=== PATIENT | female | born 1990 | race Caucasian/White ===

== ENCOUNTER 2019-01-13 09:29 | Emergency (ER) | payer OTHER ==
[2019-01-13 09:41] VITALS: RESP 18; TEMP 98.5
--- NOTE | 2019-01-13 10:07 | ED ---
Female Urogenital HPI - General Chief complaint: Vaginal Bleeding Stated complaint: 6wks preg, bleeding Time Seen by Provider: 01/13/19 09:43 Source: patient, RN notes reviewed, old records reviewed Mode of arrival: ambulatory Limitations: no limitations - History of Present Illness Initial comments: Patient is a 28-year-old female who presents emergency Department today with complaints of vaginal bleeding for the past day. Patient reports that she r ecently found out she is . She blew she 6 weeks . Last menstrual period was November 29. She went to her primary care doctor yesterday and had a positive hCG test. Patient states that she is planning to follow-up with [facility] blew out her [facility] but has no [facility] doctor at this time. Patient states she has no significant pain but light cramping. - Related Data Home Medications Medication Instructions Recorded Confirmed Ljr-Jiza-Lyijx Acid 1 cap PO DAILY 01/13/19 01/13/19 [-U Capsule (formulary)] Allergies Allergy/AdvReac Type Severity Reaction Status Date / Time No Known Allergies Allergy Verified 01/13/19 09:50 Review of Systems ROS Statement: Those systems with pertinent positive or pertinent negative responses have been documented in the HPI. ROS Other: All systems not noted in ROS Statement are negative. Past Medical History Past Medical History: No Reported History History of Any Multi-Drug Resistant Organisms: None Reported Past Surgical History: Tonsillectomy Past Psychological History: No Psychological Hx Reported Smoking Status: Never smoker Past Alcohol Use History: None Reported Past Drug Use History: None Reported General Exam - General Exam Comments Initial Comments: Pleasant 28-year-old female. Alert and oriented 3. Patient appears in no significant distress. General: Well appearing, well nourished, in no distress. Oriented x 3, normal mood and affect . Ambulating without difficulty. Skin: Good turgor, no rash, unusual bruising or prominent lesions Hair: Normal texture and distribution. HEENT: Head: Normocephalic, atraumatic, no visible or palpable masses, depressions, or scaring. Eyes: Visual acuity intact, conjunctiva clear, sclera non-icteric, EOM intact, PERRL. Heart: No cardiomegaly or thrills; regular rate and rhythm, no murmur or gallop Lungs: Clear to auscultation and percussion Abdomen: Bowel sounds normal, no tenderness, organomegaly, masses, or hernia Back: Spine normal without deformity or tenderness, no CVA tenderness Extremities: No amputations or deformities, cyanosis, edema or varicosities, peripheral pulses intact Musculoskeletal: Normal gait and station. No misalignment, asymmetry, crepitation, defects, tenderness, masses, effusions, decreased range of motion, instability, atrophy or abnormal strength or tone in the head, neck, spine, ribs, pelvis or extremities. Neurologic: CN 2-12 normal. Sensation to pain, touch, and proprioception normal. DTRs normal in upper and lower extremities. No pathologic reflexes. Psychiatric: Oriented X3, intact recent and remote memory, judgment and insight, normal mood and affect. Pelvic: Vagina and cervix have evidence of blood clots of involved. Patient has no adnexal tenderness. Cervix appears to close. Limitations: no limitations Course Vital Signs 01/13/19 09:39 Temperature 98.5 F Pulse Rate 72 Respiratory 18 Rate Blood Pressure 128/83 O2 Sat by Pulse 99 Oximetry Medical Decision Making - Medical Decision Making 28-year-old female presents emergency Department today with complaints of vaginal bleeding. Patient is reportedly with 6 weeks . Has significant amount being on vaginal exam. Patient ultrasound shows no heart tones. A concern for blighted ovum. She is O+ blood type. She'll thousand. Discussed Patient follow-up with [facility] for repeat hCG O's. Can expect bleeding. For concerns for miscarriage. All questions answered. - Lab Data Result diagrams: 01/13/19 10:36 01/13/19 10:36 Lab Results 01/13/19 01/13/19 01/13/19 Range/Units 10:36 10:36 10:36 WBC 9.9 (3.8-10.6) k/uL RBC 4.74 (3.80-5.40) m/uL Hgb 13.4 (11.4-16.0) gm/dL Hct 41.7 (34.0-46.0) % MCV 87.9 (80.0-100.0) fL MCH 28.4 (25.0-35.0) pg MCHC 32.3 (31.0-37.0) g/dL RDW 14.0 (11.5-15.5) % Plt Count 314 (150-450) k/uL Neutrophils % 71 % Lymphocytes % 21 % Monocytes % 5 % Eosinophils % 1 % Basophils % 1 % Neutrophils # 7.0 (1.3-7.7) k/uL Lymphocytes # 2.1 (1.0-4.8) k/uL Monocytes # 0.5 (0-1.0) k/uL Eosinophils # 0.1 (0-0.7) k/uL Basophils # 0.1 (0-0.2) k/uL Sodium 137 (137-145) mmol/L Potassium 4.1 (3.5-5.1) mmol/L Chloride 103 (98-107) mmol/L Carbon Dioxide 25 (22-30) mmol/L Anion Gap 9 mmol/L BUN 13 (7-17) mg/dL Creatinine 0.70 (0.52-1.04) mg/dL Est GFR (CKD-EPI)AfAm >90 (>60 ml/min/1.73 sqM) Est GFR (CKD-EPI)NonAf >90 (>60 ml/min/1.73 sqM) Glucose 94 (74-99) mg/dL Calcium 9.4 (8.4-10.2) mg/dL Total Bilirubin 0.4 (0.2-1.3) mg/dL AST 34 (14-36) U/L ALT 93 H (9-52) U/L Alkaline Phosphatase 74 (38-126) U/L Total Protein 6.6 (6.3-8.2) g/dL Albumin 4.1 (3.5-5.0) g/dL HCG, Quant 83356.4 mIU/mL Urine HCG, Qual (Not Detectd) Trichomonas Ag (Rapid) (Negative) Blood Type O Positive Blood Type Recheck [facility] ONLY 01/13/19 01/13/19 Range/Units 10:42 10:42 WBC (3.8-10.6) k/uL RBC (3.80-5.40) m/uL Hgb (11.4-16.0) gm/dL Hct (34.0-46.0) % MCV (80.0-100.0) fL MCH (25.0-35.0) pg MCHC (31.0-37.0) g/dL RDW (11.5-15.5) % Plt Count (150-450) k/uL Neutrophils % % Lymphocytes % % Monocytes % % Eosinophils % % Basophils % % Neutrophils # (1.3-7.7) k/uL Lymphocytes # (1.0-4.8) k/uL Monocytes # (0-1.0) k/uL Eosinophils # (0-0.7) k/uL Basophils # (0-0.2) k/uL Sodium (137-145) mmol/L Potassium (3.5-5.1) mmol/L Chloride (98-107) mmol/L Carbon Dioxide (22-30) mmol/L Anion Gap mmol/L BUN (7-17) mg/dL Creatinine (0.52-1.04) mg/dL Est GFR (CKD-EPI)AfAm (>60 ml/min/1.73 sqM) Est GFR (CKD-EPI)NonAf (>60 ml/min/1.73 sqM) Glucose (74-99) mg/dL Calcium (8.4-10.2) mg/dL Total Bilirubin (0.2-1.3) mg/dL AST (14-36) U/L ALT (9-52) U/L Alkaline Phosphatase (38-126) U/L Total Protein (6.3-8.2) g/dL Albumin (3.5-5.0) g/dL HCG, Quant mIU/mL Urine HCG, Qual Detected (Not Detectd) Trichomonas Ag (Rapid) Negative (Negative) Blood Type Blood Type Recheck - Radiology Data Radiology results: report reviewed Focal collection in the upper uterine endometrial canal. Yolk sac or pole was not identified at this time. Based on sac diameter gestational age is 6 weeks and 0 days. pole should be identified at this gestational age. Blighted ovum should be considered. Spontaneous may have occurred with residual fluid in canal. Correlating with hCG and follow-up recommended. This is read by Dr. Chandra Disposition Clinical Impression: Threatened miscarriage Disposition: HOME SELF-CARE Condition: Good Instructions (If sedation given, give patient instructions): Threatened Miscarriage (ED) Additional Instructions: Patient advised to follow-up with primary care doctor. Repeat hCG levels in 2 days. Return to the emergency department if any alarming signs or symptoms occur. Is patient prescribed a controlled substance at d/c from ED?: No Referrals: Shayy Ruiz DO [Primary Care Provider] - 1-2 days Elaine Fay MD [STAFF PHYSICIAN] - 1-2 days Time of Disposition: 12:15
[2019-01-13 11:13] LABS: Basophils # (A) 0.1 k/uL (0-0.2); Basophils % (A) 1 %; Eosinophils # (A) 0.1 k/uL (0-0.7); Eosinophils % (A) 1 %; HCT 41.7 % (34.0-46.0); HGB 13.4 gm/dL (11.4-16.0); Lymphocytes # (A) 2.1 k/uL (1.0-4.8); Lymphocytes % (A) 21 %; MCH 28.4 pg (25.0-35.0); MCHC 32.3 g/dL (31.0-37.0); MCV 87.9 fL (80.0-100.0); Mean Platelet Volume 6.8; Monocytes # (A) 0.5 k/uL (0-1.0); Monocytes % (A) 5 %; Neutrophils % (A) 71 %; Platelet Count 314 k/uL (150-450); RBC 4.74 m/uL (3.80-5.40); WBC 9.9 k/uL (3.8-10.6)
[2019-01-13 11:24] LABS: ALT 93 U/L (9-52); AST 34 U/L (14-36); Albumin 4.1 g/dL (3.5-5.0); Alkaline Phosphatase 74 U/L (38-126); Anion Gap 9 mmol/L; Blood Urea Nitrogen 13 mg/dL (7-17); Calcium 9.4 mg/dL (8.4-10.2); Carbon Dioxide 25 mmol/L (22-30); Chloride 103 mmol/L (98-107); Glucose 94 mg/dL (74-99); Potassium 4.1 mmol/L (3.5-5.1); Sodium 137 mmol/L (137-145); Total Bilirubin 0.4 mg/dL (0.2-1.3); Total Protein 6.6 g/dL (6.3-8.2)
[2019-01-13 11:41] LABS: HCG,Quantitative Serum 13476.4 mIU/mL
--- NOTE | 2019-01-13 11:43 | US ---
EXAMINATION TYPE: Transabdominal DATE OF EXAM: 01/13/2019 11:22 AM COMPARISON: NONE CLINICAL HISTORY: pain. vaginal bleeding with clots, cramping EXAM PERFORMED: Transvaginal (TV) and Transabdominal (TA) EXAM MEASUREMENTS: GESTATIONAL AGE / DATING Physician Established: Not yet established Dates by LMP: (6 weeks/3 days) EDC: 09/05/19 Dates by First Scan: No previous this is first scan Dates by Current Scan for: (6 weeks/0 days) - MSD MATERNAL ANATOMY Uterus: 7.6 x 3.6 x 4.8cm Right Ovary: obscured by overlying bowel content Left Ovary: obscured by overlying bowel content Post CDS / Adnexa: appears wnl Presence of free fluid: no GESTATION / SURVEY MSD: 1.7cm (6 weeks/0 days) Yolk Sac (normal less than 6mm): unable to visualize No evidence of pole at this time Date of LMP: 11/29/18 Beta HcG (if available): Not available at this time Possible gestational sac identified within uterus. No evidence of yolk sac or pole at this time IMPRESSION: There is a hypoechoic collection in the upper uterine endometrial canal. Yolk sac or pole is no t identified at this time. Based on the mean sac diameter, the estimated gestational age is 6 weeks 0 days gestation. pole should be identified at this gestational age. Blighted ovum should be con sidered. Spontaneous may have occurred with residual fluid in the canal. Correlation with be ta-hCG and follow-up is recommended.
[2019-01-13 12:27] VITALS: BP 119/66; PULSE 94
[2019-01-14 14:08] LABS: C. trachomatis,PCR Negative (Neg,Equiv); Chlamydia trachomatis Source Vagina; N. gonorrhoeae,PCR Negative (Neg,Equiv); Neisseria Source Vagina
== END 2019-01-13 12:40 | disposition home or self-care (01) ==
LOC: EC 09:29
DX: O20.0 Threatened abortion (principal); Z3A.01 Less than 8 weeks gestation of pregnancy; Z67.40 Type O blood, Rh positive
CPT/HCPCS: 36415; 76801; 76817; 80053; 81025; 84702; 85025; 86900; 86901; 87070; 87205; 87491; 87591; 87808; 99284

== ENCOUNTER → 2019-01-15 | Outpatient (CLI) | payer OTHER | LOC: LABWHC1 14:09 | PROVIDERS: ATTEND Physician Assistant Medical | DX: O20.0 Threatened abortion (principal) | CPT/HCPCS: 36415; 84702 ==

== ENCOUNTER → 2019-01-19 | Outpatient (CLI) | payer OTHER ==
[2019-01-19 15:05] LABS: HCT 40.8 % (34.0-46.0); HGB 13.3 gm/dL (11.4-16.0); MCH 28.9 pg (25.0-35.0); MCHC 32.5 g/dL (31.0-37.0); MCV 88.9 fL (80.0-100.0); Mean Platelet Volume 7.2; Platelet Count 299 k/uL (150-450); RBC 4.59 m/uL (3.80-5.40); RDW 14.1 % (11.5-15.5); WBC 11.9 k/uL (3.8-10.6)
== END | disposition home or self-care (01) ==
LOC: LABWHC1 11:55
PROVIDERS: ATTEND Obstetrics & Gynecology Obstetrics
DX: O20.0 Threatened abortion (principal)
CPT/HCPCS: 36415; 84702; 85027

== ENCOUNTER 2019-08-30 06:02 | Inpatient (IN) | payer OTHER ==
[2019-08-20 15:08] VITALS: BMI 47.7
[2019-08-30] MEDS ORDERED: LACTATED RINGERS 1,000 ML IV ONE (06:22)
[2019-08-30] MEDS ORDERED: CITRIC ACID-SODIUM CITRATE 15 ML CUP PO ONE (06:22)
[2019-08-30] MEDS ORDERED: ceFAZolin 3 GM in SODIUM CHLORIDE 0.9% 100 ML IVPB ONE (06:30)
[2019-08-30 06:36] LABS: Basophils % (A) 0 %; Eosinophils # (A) 0.1 k/uL (0-0.7); Eosinophils % (A) 1 %; HCT 39.8 % (34.0-46.0); HGB 13.1 gm/dL (11.4-16.0); Lymphocytes # (A) 2.6 k/uL (1.0-4.8); Lymphocytes % (A) 21 %; MCH 28.2 pg (25.0-35.0); MCV 85.4 fL (80.0-100.0); Mean Platelet Volume 6.5; Monocytes # (A) 0.7 k/uL (0-1.0); Monocytes % (A) 5 %; Neutrophils # (A) 8.9 k/uL (1.3-7.7); Neutrophils % (A) 71 %; Platelet Count 316 k/uL (150-450); RBC 4.67 m/uL (3.80-5.40); RDW 14.5 % (11.5-15.5); WBC 12.5 k/uL (3.8-10.6)
[2019-08-30] MEDS: LACTATED RINGERS 1,000 ML IV SCH ×4 (07:05→18:13)
[2019-08-30] MEDS ORDERED: MORPHINE SULFATE (PF) 0.3 MG/0.3 ML SYR ONE (08:00)
[2019-08-30] MEDS ORDERED: OXYTOCIN 10 UNIT/ML 1 ML VIAL ONE (08:00)
[2019-08-30] MEDS ORDERED: ONDANSETRON 4 MG/2 ML VIAL ONE (08:00)
[2019-08-30] MEDS ORDERED: NALBUPHINE 10 MG/ML (1 ML AMP) ONE (08:00)
[2019-08-30] MEDS ORDERED: PHENYLEPHRINE-0.9% NACL SYG 1 MG/10 ML SYRINGE ONE (08:00)
--- NOTE | 2019-08-30 08:05 | P.HPOB ---
History of Present Illness H&P Date: 08/30/19 Chief Complaint: IUP @ 39 1/7 weeks, breech This is a pleasant 29-year-old 1 para 0 at 39 and one sevenths weeks that presents for primary section secondary to breech presentation. Patient has been receiving routine care with myself and other than some first-term menstrual bleeding and has been uncomplicated. Patient notes good movement denies vaginal bleeding or contractions. On blood work shows a blood type of O+, B surface antigen is negative, HIV negative, RPR nonreactive, GBS is negative. Review of Systems Constitutional: Denies fatigue Ears, nose, mouth and throat: Denies headache Cardiovascular: Reports leg edema Respiratory: Denies dyspnea Gastrointestinal: Denies constipation, Denies diarrhea, Denies nausea, Denies vomiting Genitourinary: Reports Past Medical History Past Medical History: GERD/Reflux History of Any Multi-Drug Resistant Organisms: None Reported Past Surgical History: Tonsillectomy Past Anesthesia/Blood Transfusion Reactions: No Reported Reaction, Family History of Problems w/ Anesthesia Additional Past Anesthesia/Blood Transfusion Reaction / Comment(s): "mom during c/s- b/p dropped flatlined and had to be revived" Past Psychological History: No Psychological Hx Reported Smoking Status: Former smoker Past Alcohol Use History: None Reported Past Drug Use History: None Reported - Past Family History Mother Additional Family Medical History / Comment(s): maternal grandpa bleeding disorder and DVT's Medications and Allergies Home Medications Medication Instructions Recorded Confirmed Type Vto-Dzjt-Xthko Acid 1 cap PO DAILY 01/13/19 08/30/19 History [-U Capsule (formulary)] Allergies Allergy/AdvReac Type Severity Reaction Status Date / Time No Known Allergies Allergy Verified 08/30/19 06:13 Exam Osteopathic Statement: *. No significant issues noted on an osteopathic structural exam other than those noted in the History and Physical/Consult. Vital Signs Temp Pulse Resp BP Pulse Ox 08/30/19 06:16 96.8 F L 110 H 18 138/90 97 Targeted physical exam is performed in this date and systems support officer a well-nourished well-developed female in no acute distress, breathing is noted to be nonlabored her heart has a regular rate and rhythm abdomen is gravid and noted to be larger than gestational age, heart tones were noted be category 1 and she is not yamel cervical exam is deferred at this time. Results Result Diagrams: 08/30/19 06:21 Abnormal Lab Results - Last 24 Hours (Table) 08/30/19 Range/Units 06:21 WBC 12.5 H (3.8-10.6) k/uL Neutrophils # 8.9 H (1.3-7.7) k/uL Assessment and Plan (1) Term Current Visit: Yes Status: Acute Code(s): Z34.90 - ENCNTR FOR SUPRVSN OF NORMAL , UNSP, UNSP TRIMESTER SNOMED Code(s): 35269730 (2) Breech presentation Current Visit: Yes Status: Acute Code(s): O32.1XX0 - MATERNAL CARE FOR BREECH PRESENTATION, UNSP SNOMED Code(s): 4901103 Plan: Patient is admitted to labor and delivery for scheduled primary due to breech presentation. All questions are answered Risser reviewed including not limited to infection, bleeding, damage to bladder, bowel, injury upon entering the uterus. Patient states understanding and will proceed with C- section.
[2019-08-30] MEDS ORDERED: NALBUPHINE 10 MG/ML (1 ML AMP) IV PRN (08:44)
[2019-08-30] MEDS ORDERED: HYDROmorphone 0.5 MG/0.5 ML SYRINGE IVP PRN (08:44)
[2019-08-30] MEDS ORDERED: diphenhydrAMINE 50 MG/ML 1 ML VIAL IVP PRN ×3 (08:44→09:15)
[2019-08-30] MEDS ORDERED: KETOROLAC 30 MG/ML 1 ML VIAL IVP PRN (08:44)
[2019-08-30] MEDS ORDERED: NALOXONE 0.4 MG/ML 1 ML VIAL IV PRN ×2 (08:44→09:15)
[2019-08-30] MEDS ORDERED: OXYTOCIN 20 UNITS/1000 ML NS 1,000 ML IV SCH (09:15)
[2019-08-30] MEDS ORDERED: METOCLOPRAMIDE 5 MG/ML 2 ML VIAL IVP PRN (09:15)
[2019-08-30] MEDS ORDERED: ACETAMINOPHEN TAB 325 MG TAB PO PRN (09:15)
[2019-08-30] MEDS ORDERED: diphenhydrAMINE 25 MG CAP PO PRN (09:15)
[2019-08-30] MEDS ORDERED: ONDANSETRON 4 MG/2 ML VIAL IVP PRN (09:15)
[2019-08-30] MEDS ORDERED: ZOLPIDEM 5 MG TAB PO PRN (09:15)
[2019-08-30] MEDS ORDERED: SIMETHICONE 80 MG CHEWABLE PO PRN (09:15)
[2019-08-30] MEDS ORDERED: diphenhydrAMINE 50 MG CAP PO PRN (09:15)
--- NOTE | 2019-08-30 09:15 | P.OP ---
Date of Procedure: 08/30/19 Preoperative Diagnosis: IUP @ 39 1/7 week, breech presentation Postoperative Diagnosis: Same plus arcuate uterus Procedure(s) Performed: Primary low transverse section Anesthesia: spinal Surgeon: Dali Harley Furnace Helper #1: Raj Theodore Estimated Blood Loss (ml): 600 IV fluids (ml): 1,000 Urine output (ml): 200 Pathology: none sent Condition: stable Disposition: observation Indications for Procedure: Breech presentation Operative Findings: Uterus appeared to be arcuate in nature, normal ovaries were appreciated bilaterally. Infant was noted to be in footling breech presentation delivered at 834, weight of 8 lbs. 2 oz. with Apgars of 7 and 9 at one and 5 minutes respectively. Description of Procedure: Patient was seen in her labor room and questions were answered and patient was taken back to the operating suite where spinal anesthesia was found be adequate by the anesthesia department. She was then prepped and draped in the normal sterile fashion in the dorsal supine position. A Henriquez catheter had been placed prior. A Pfannenstiel skin incision was made with a scalpel and carried through the underlying layer fascia. The fascia was then incised in the midline and extended laterally. Superior aspect of the fascial incision was then grasped flaquito clamps, elevated and underlying rectus muscles were dissected off sharply. Attention was then turned to the patient's inferior aspect of the fascial incision which was grasped flaquito clamps, elevated and underlying rectus muscle was dissected off sharply once again. The rectus muscles were then in the midline the peritoneum was identified and entered. The vesicouterine peritoneum was identified, and the bladder flap was then created sharply. The bladder blade was then reinserted into the abdomen. A scalpel was used to enter the uterus sharply. The was then encountered in a footling breech presentation, back down infant girl was delivered in the usual breech fashion. The cord was then doubly clamped and cut and the was handed off to awaiting RN. Cord blood was then taken. The placenta was removed manually and the uterus was cleared of all clots and debris. The hysterotomy incision was then closed with 0 Vicryl in a running locked fashion from one lateral edge the other a second layer of suture was used to obtain hemostasis. On inspection the patient's hysterotomy incision small lung bleeding was noted on the left-hand side therefore a [id number] suture was used to obtain hemostasis. At this time the pelvis was then copiously irrigated and no bleeding was noted and the uterus was turned to the abdomen. The hysterotomy site was inspected once again and hemostatic. The gutters were cleared of all clots and debris. The peritoneum was then loosely reapproximated the fascia was then closed with 0 Vicryl from one lateral edge the midline and the other lateral edge the midline. The subcu cutaneous tissue was then irrigated hemostasis was appreciated. This was then closed with 3-0 Vicryl in a running fashion. The skin was then closed with 4-0 Vicryl in a subcuticular fashion. All counts were correct 2, patient and tolerated procedure well and was taken back to her labor suite.
[2019-08-30] MEDS ORDERED: ACETAMINOPHEN IV (For NPO) 1,000 MG in EMPTY BAG 1 BAG IVPB ONE (09:45)
[2019-08-30] MEDS ORDERED: IBUPROFEN IV 800 MG in SODIUM CHLORIDE 0.9% 250 ML IV ONE (10:00)
[2019-08-30] MEDS: SENNOSIDES-DOCUSATE SODIUM 1 EACH TAB PO SCH (20:20)
[2019-08-31 07:44] LABS: Basophils % (A) 0 %; Eosinophils # (A) 0.1 k/uL (0-0.7); Eosinophils % (A) 0 %; HCT 36.3 % (34.0-46.0); HGB 12.1 gm/dL (11.4-16.0); Lymphocytes # (A) 1.3 k/uL (1.0-4.8); Lymphocytes % (A) 11 %; MCH 28.6 pg (25.0-35.0); MCHC 33.4 g/dL (31.0-37.0); MCV 85.6 fL (80.0-100.0); Mean Platelet Volume 6.3; Monocytes # (A) 0.5 k/uL (0-1.0); Monocytes % (A) 4 %; Neutrophils # (A) 10.6 k/uL (1.3-7.7); Neutrophils % (A) 84 %; Platelet Count 260 k/uL (150-450); RBC 4.25 m/uL (3.80-5.40); RDW 14.5 % (11.5-15.5); WBC 12.6 k/uL (3.8-10.6)
--- NOTE | 2019-08-31 07:57 | P.PN ---
Progress Note - Text 08/31 715am 89-year-old female status post with a spinal anesthetic, patient also had Duramorph for postop pain control. Patient seen this morning with a VAS of 2 she had complains of nausea and itching yesterday. This morning her complaints had subsided.
--- NOTE | 2019-08-31 08:04 | P.PNOBGPC ---
Subjective - Subjective Principal diagnosis: POD 1 LTCS Interval history: Patient is doing well this morning she is ambulating and voiding without difficulty. She is tolerating clear liquids without nausea or vomiting. Pain is well-controlled Lochia is moderate, she is breast-feeding with some difficulty Patient reports: Reports appetite normal, Reports voiding normally, Reports pain well controlled, Reports ambulating normally : doing well Objective - Vital Signs Latest vital signs: Vital Signs Temp Pulse Resp BP Pulse Ox 08/31/19 04:00 98.4 F 88 16 130/44 08/31/19 00:00 97.8 F 82 18 130/45 08/30/19 20:00 97.9 F 89 18 123/70 98 08/30/19 16:00 98.3 F 85 18 133/73 96 08/30/19 14:56 18 08/30/19 12:00 18 08/30/19 11:45 96.6 F L 87 18 122/71 96 08/30/19 11:05 97.1 F L 88 18 120/76 98 08/30/19 10:35 88 131/73 08/30/19 10:05 96.6 F L 81 18 115/71 97 08/30/19 09:50 90 117/57 08/30/19 09:35 97.0 F L 79 18 111/60 98 08/30/19 09:20 96.8 F L 85 18 102/63 98 08/30/19 09:05 97.6 F 86 18 109/51 95 Intake and Output 08/30/19 08/31/19 08/31/19 22:59 06:59 14:59 Output Total 200 2100 Balance -200 -2100 Output: Urine 200 2100 Straight 700 Uretheral (Henriquez) 200 Other: # Voids 1 - Exam Extremities: Present: normal Abdomen: Present: normal appearance, soft Incision: Present: normal, dry, intact Uterus: Present: normal, firm - Labs Labs: Abnormal Lab Results - Last 24 Hours (Table) 08/31/19 Range/Units 07:06 WBC 12.6 H (3.8-10.6) k/uL Neutrophils # 10.6 H (1.3-7.7) k/uL Assessment and Plan (1) Term Current Visit: Yes Status: Acute Code(s): Z34.90 - ENCNTR FOR SUPRVSN OF NORMAL , UNSP, UNSP TRIMESTER SNOMED Code(s): 08969525 (2) Breech presentation Current Visit: Yes Status: Acute Code(s): O32.1XX0 - MATERNAL CARE FOR BREECH PRESENTATION, UNSP SNOMED Code(s): 8007935 (3) S/P section Current Visit: Yes Status: Acute Code(s): Z98.891 - HISTORY OF UTERINE SCAR FROM PREVIOUS SURGERY SNOMED Code(s): 709451298 Plan: Patient is doing well postoperatively, will continue routine postoperative care today. Anticipate discharge tomorrow.
[2019-08-31] MEDS: SENNOSIDES-DOCUSATE SODIUM 1 EACH TAB PO SCH ×2 (08:13→20:01)
[2019-08-31] MEDS: IBUPROFEN 600 MG TAB PO PRN ×3 (08:13→23:23)
[2019-08-31] MEDS: PRENATAL VIT-IRON-FOLIC ACID 1 EACH CAP PO SCH (10:36)
[2019-08-31] MEDS: HYDROcodone/APAP 5-325MG 1 EACH TAB PO PRN ×2 (13:16→21:15)
[2019-09-01] MEDS: IBUPROFEN 600 MG TAB PO PRN (08:32)
[2019-09-01] MEDS: SENNOSIDES-DOCUSATE SODIUM 1 EACH TAB PO SCH (08:34)
--- NOTE | 2019-09-01 08:38 | P.DS ---
Providers Date of admission: 08/30/19 06:02 Expected date of discharge: 09/01/19 Attending physician: Dali Harley Primary care physician: Stated None - Discharge Diagnosis(es) (1) Term Current Visit: Yes Status: Acute (2) Breech presentation Current Visit: Yes Status: Acute (3) S/P section Current Visit: Yes Status: Acute Hospital Course: This is a 21-year-old 1 now para 1 presented to labor and delivery at 39 and one sevenths weeks for primary secondary to breech presentation. For further details on this patient please see the dictated history and physical. Patient was admitted primary was performed without difficulty. For further details on the please see the operative report. Patient delivered a viable female infant at 834, breech presentation, weight of 8 lbs. 2 oz. with Apgars of 7 and 9 at one and 5 minutes respectively. Patient's course has been uneventful. On this postop day #2 she is ambulating and voiding without difficulty. She states her pain is well- controlled. She denies concerns and does wish discharge home. She is breast- feeding. Patient Condition at Discharge: Good Plan - Discharge Summary Discharge Rx Participant: No New Discharge Prescriptions: No Action Eow-Ekkf-Dtipf Acid [-U Capsule (formulary)] 1 cap PO DAILY Discharge Medication List Irp-Qbgh-Xjdxo Acid [-U Capsule (formulary)] 1 cap PO DAILY 01/13/19 [History] Follow up Appointment(s)/Referral(s): Dali Harley DO [Doctor of Osteopathic Medicine] - 2 Weeks Patient Instructions/Handouts: (DC), (GEN) Discharge Disposition: HOME SELF-CARE
[2019-09-01 09:18] VITALS: BP 128/81; PULSE 94; RESP 20; TEMP 98.2
[2019-09-01] MEDS: PRENATAL VIT-IRON-FOLIC ACID 1 EACH CAP PO SCH (10:25)
== END 2019-09-01 12:15 | disposition home or self-care (01) | DRG 788 ==
LOC: 4FBP 06:02
PROVIDERS: ADMIT Obstetrics & Gynecology Obstetrics; ATTEND Obstetrics & Gynecology Obstetrics
PROC: 10D00Z1 Extraction of Products of Conception, Low, Open Approach (ICD-10-PCS; principal; 2019-08-30 08:00)
DX: O32.8XX0 Maternal care for other malpresentation of fetus, not applicable or unspecified (principal); Q51.810 Arcuate uterus; K21.9 Gastro-esophageal reflux disease without esophagitis; O99.62 Diseases of the digestive system complicating childbirth; Z37.0 Single live birth; Z3A.39 39 weeks gestation of pregnancy; Z87.891 Personal history of nicotine dependence; Z83.2 Family history of diseases of the blood and blood-forming organs and certain disorders involving the immune mechanism
CPT/HCPCS: 85025; 86850; 86900; 86901

== ENCOUNTER → 2022-01-21 | Outpatient (CLI) | payer BC ==
--- NOTE | 2022-01-21 14:31 | FL ---
EXAMINATION TYPE: FL hysterosalpingography DATE OF EXAM: 01/21/2022 HISTORY: Infertility. Informed consent was obtained and all the patient's questions were answered. Pulmonary film of the p candido reveals no distinct abnormality. A speculum was introduced and the external cervical os was lo calize. The external cervical os was cleansed and a Betadine solution on 3 occasions. Hysterosalpin gography catheter was introduced into the uterus and balloon insufflation device deployed. Approxima tely 12 cc of nonionic contrast was injected in a retrograde manner. The uterus demonstrates a bicornuate appearance. No persistent uterine filling defects are seen. Bot h fallopian tubes fill with contrast normally. There is spill of contrast into the peritoneal cavity bilaterally left greater than right. 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
== END | disposition home or self-care (01) ==
LOC: RADUSWWP 13:05
PROVIDERS: ATTEND Obstetrics & Gynecology Obstetrics
DX: N97.9 Female infertility, unspecified (principal)
CPT/HCPCS: 58340; 74740; Q9967

== ENCOUNTER 2023-05-15 18:59 | Emergency (ER) | payer BC ==
[2023-05-15] MEDS ORDERED: SODIUM CHLORIDE 0.9% 1,000 ML IV ONE (19:43)
--- NOTE | 2023-05-15 19:58 | ED ---
General Adult HPI - General Chief complaint: Vaginal Bleeding Stated complaint: 6weeks preg vaginal bleeding Time Seen by Provider: 05/15/23 19:41 Source: patient, RN notes reviewed Mode of arrival: ambulatory Limitations: no limitations - History of Present Illness Initial comments: 33-year-old female who is presents the emergency department with a chief complaint of vaginal bleeding. Patient reports bright red vaginal bleeding and mild cramping that started approximately 2 hours prior to arrival. She reports that this is her second and had the same thing in her first . Last menstrual period date was 04/10/2023. Her ROTATING EQUIPMENT SPECIALIST is Dr. Valero. She denies any dizziness, lightheadedness, trauma, injury, shortness of breath and fatigue. - Related Data Home Medications Medication Instructions Recorded Confirmed Ipt-Qrod-Ahdkv Acid 1 cap PO DAILY 01/13/19 08/30/19 [-U Capsule (formulary)] Allergies Allergy/AdvReac Type Severity Reaction Status Date / Time No Known Allergies Allergy Verified 05/15/23 19:35 Review of Systems ROS Statement: Those systems with pertinent positive or pertinent negative responses have been documented in the HPI. ROS Other: All systems not noted in ROS Statement are negative. Past Medical History Past Medical History: GERD/Reflux History of Any Multi-Drug Resistant Organisms: None Reported Past Surgical History: Section, Tonsillectomy Past Anesthesia/Blood Transfusion Reactions: No Reported Reaction, Family History of Problems w/ Anesthesia Additional Past Anesthesia/Blood Transfusion Reaction / Comment(s): "mom during c/s- b/p dropped flatlined and had to be revived" Past Psychological History: No Psychological Hx Reported Smoking Status: Never smoker Past Alcohol Use History: None Reported Past Drug Use History: None Reported - Past Family History Mother Additional Family Medical History / Comment(s): maternal grandpa bleeding disorder and DVT's General Exam - General Exam Comments Initial Comments: General: Alert, in no acute distress, she is obese Head: atraumatic normocephalic. Eyes PERRL, EOMI intact, mucous membranes moist Respiratory: Lungs clear to auscultation bilaterally Cardiovascular: Heart rate regular rate and rhythm Abdominal: Soft without guarding or rebound Extremities: Normal inspection with full range of motion and normal capillary refill Neuroogic: alert and oriented 3, CN II-XII intact, able to ambulate with steady gait Skin: warm dry and intact with normal color ; external exam is without any rashes, lesions, erythema. Vaginal canal with scant bright red blood with one clot cleared.. Cervical os is visualized and is closed. There is no cervical motion tenderness for abnormal adnexal tenderness. Pelvic exam performed with Mateus cannon RN present. Limitations: no limitations Course Vital Signs 05/15/23 05/15/23 19:31 21:22 Temperature 97.7 F 98.4 F Pulse Rate 81 67 Respiratory 22 16 Rate Blood Pressure 122/82 106/66 O2 Sat by Pulse 99 99 Oximetry Medical Decision Making - Medical Decision Making Was pt. sent in by a medical professional or institution (, PA, FLAME DEGREASER, urgent care, hospital, or fdc...) When possible be specific @ -[No] Did you speak to anyone other than the patient for history (EMS, parent, family, police, friend...)? What history was obtained from this source @ -[No] Did you review nursing and triage notes (agree or disagree)? Why? @ -[I reviewed and agree with nursing and triage notes] Were old charts reviewed (outside hosp., previous admission, EMS record, old EKG, old radiological studies, urgent care reports/EKG's, fdc records)? Report findings @ -[No old charts were reviewed] Differential Diagnosis (chest pain, altered mental status, abdominal pain women, abdominal pain men, vaginal bleeding, weakness, fever, dyspnea, syncope, headache, dizziness, GI bleed, back pain, seizure, CVA, palpatations, mental health, musculoskeletal)? @ -[not applicable] EKG interpreted by me (3pts min.). @ -[As above] X-rays interpreted by me (1pt min.). @ -[None done] CT interpreted by me (1pt min.). @ -[None done] U/S interpreted by me (1pt. min.). @ - fluid the fundal endometrium that could result in a gestational sac of an early intrauterine no yolk sac or pole is identified What testing was considered but not performed or refused? (CT, X-rays, U/S, labs )? Why? @ -[None] What meds were considered but not given or refused? Why? @ -[None] Did you discuss the management of the patient with other professionals (professionals i.e. , PA, FLAME DEGREASER, lab, RT, psych nurse, director of social services, shoe cementer, teacher, ecological technical officer, case making machine operator)? Give summary @ -[No] Was smoking cessation discussed for >3mins.? @ -[No] Was critical care preformed (if so, how long)? @ -[No] Were there social determinants of health that impacted care today? How? (Homelessness, low income, unemployed, alcoholism, drug addiction, transportation, low edu. Level, literacy, decrease access to med. care, intermediate, rehab)? @ -[No] Was there de-escalation of care discussed even if they declined (Discuss DNR or withdrawal of care, Hospice)? DNR status @ -[No] What co-morbidities impacted this encounter? (DM, HTN, Smoking, COPD, CAD, Cancer, CVA, ARF, Chemo, Hep., AIDS, mental health diagnosis, sleep apnea, morbid obesity)? @ -[None] Was patient admitted / discharged? Hospital course, mention meds given and route, prescriptions, significant lab abnormalities, going to OR and other pert inent info. @ -Discharge. This is a pleasant 33-year-old female presents the emergency department with vaginal bleeding in . Patient had a thorough history and physical exam performed while in the emergency department. Physical exam is essentially unremarkable. She did you exam reveals scant amount of bright red blood in the vaginal vault however is easily cleared. Cervical os is closed. Patient had lab work and imaging which revealed: WBCs 11.0, hemoglobin 13.3 hCG is 6,405 Patient had ultrasound which revealed: fluid the fundal endometrium that could result in a gestational sac of an early intrauterine no yolk sac or pole is identified I discussed the results in detail with the patient verbalized and all questions were addressed. Return precautions were discussed at length. Patient discharged in stable condition. Patient was given a prescription for a serial hCG to be drawn within 48 hours. Case discussed with ENEDINA Green who agrees with plan of care. Undiagnosed new problem with uncertain prognosis? @ -[No] Drug Therapy requiring intensive monitoring for toxicity (Heparin, Nitro, Insulin, Cardizem)? @ -[No] Were any procedures done? @ -[No] Diagnosis/symptom? @ -Vaginal bleeding in Acute, or Chronic, or Acute on Chronic? @ -Acute Uncomplicated (without systemic symptoms) or Complicated (systemic symptoms)? @ -Uncomplicated Side effects of treatment? @ -[No] Exacerbation, Progression, or Severe Exacerbation? @ -[No] Poses a threat to life or bodily function? How? (Chest pain, [place], [place], pneumonia, PE, COPD, DKA, ARF, appy, cholecystitis, CVA, Diverticulitis, Homicidal, Suicidal, threat to staff... and all critical care pts) @ -Low likelihood - Lab Data Result diagrams: 05/15/23 20:00 05/15/23 20:00 Lab Results 05/15/23 05/15/23 05/15/23 Range/Units 20:00 20:00 20:00 WBC 11.0 H (3.8-10.6) k/uL RBC 4.52 (3.80-5.40) m/uL Hgb 13.3 (11.4-16.0) gm/dL Hct 39.8 (34.0-46.0) % MCV 87.9 (80.0-100.0) fL MCH 29.3 (25.0-35.0) pg MCHC 33.4 (31.0-37.0) g/dL RDW 13.9 (11.5-15.5) % Plt Count 242 (150-450) k/uL MPV 7.7 Neutrophils % 73 % Lymphocytes % 21 % Monocytes % 4 % Eosinophils % 1 % Basophils % 0 % Neutrophils # 8.0 H (1.3-7.7) k/uL Lymphocytes # 2.3 (1.0-4.8) k/uL Monocytes # 0.4 (0-1.0) k/uL Eosinophils # 0.1 (0-0.7) k/uL Basophils # 0.0 (0-0.2) k/uL Sodium 136 L (137-145) mmol/L Potassium 3.9 (3.5-5.1) mmol/L Chloride 104 (98-107) mmol/L Carbon Dioxide 23 (22-30) mmol/L Anion Gap 9 mmol/L BUN 16 (7-17) mg/dL Creatinine 0.81 (0.52-1.04) mg/dL Est GFR (CKD-EPI)AfAm >90 (>60 ml/min/1.73 sqM) Est GFR (CKD-EPI)NonAf >90 (>60 ml/min/1.73 sqM) Glucose 93 (74-99) mg/dL Calcium 9.0 (8.4-10.2) mg/dL Total Bilirubin 0.5 (0.2-1.3) mg/dL AST 86 H (14-36) U/L ALT 149 H (4-34) U/L Alkaline Phosphatase 78 (38-126) U/L Total Protein 7.0 (6.3-8.2) g/dL Albumin 4.2 (3.5-5.0) g/dL HCG, Quant 6405.5 mIU/mL Urine Color Light Red Urine Appearance Clear (Clear) Urine pH 5.0 (5.0-8.0) Ur Specific [place] 1.026 (1.001-1.035) Urine Protein Trace H (Negative) Urine Glucose (UA) Negative (Negative) Urine Ketones 2+ H (Negative) Urine Blood Large H (Negative) Urine Nitrite Negative (Negative) Urine Bilirubin Negative (Negative) Urine Urobilinogen <2.0 (<2.0) mg/dL Ur Leukocyte Esterase Small H (Negative) Urine RBC >182 H (0-5) /hpf Urine WBC 50 H (0-5) /hpf Ur Squamous Epith Cells 2 (0-4) /hpf Urine Mucus Occasional H (None) /hpf Blood Type Blood Type Recheck Bld Type Recheck Status 05/15/23 Range/Units 20:00 WBC (3.8-10.6) k/uL RBC (3.80-5.40) m/uL Hgb (11.4-16.0) gm/dL Hct (34.0-46.0) % MCV (80.0-100.0) fL MCH (25.0-35.0) pg MCHC (31.0-37.0) g/dL RDW (11.5-15.5) % Plt Count (150-450) k/uL MPV Neutrophils % % Lymphocytes % % Monocytes % % Eosinophils % % Basophils % % Neutrophils # (1.3-7.7) k/uL Lymphocytes # (1.0-4.8) k/uL Monocytes # (0-1.0) k/uL Eosinophils # (0-0.7) k/uL Basophils # (0-0.2) k/uL Sodium (137-145) mmol/L Potassium (3.5-5.1) mmol/L Chloride (98-107) mmol/L Carbon Dioxide (22-30) mmol/L Anion Gap mmol/L BUN (7-17) mg/dL Creatinine (0.52-1.04) mg/dL Est GFR (CKD-EPI)AfAm (>60 ml/min/1.73 sqM) Est GFR (CKD-EPI)NonAf (>60 ml/min/1.73 sqM) Glucose (74-99) mg/dL Calcium (8.4-10.2) mg/dL Total Bilirubin (0.2-1.3) mg/dL AST (14-36) U/L ALT (4-34) U/L Alkaline Phosphatase (38-126) U/L Total Protein (6.3-8.2) g/dL Albumin (3.5-5.0) g/dL HCG, Quant mIU/mL Urine Color Urine Appearance (Clear) Urine pH (5.0-8.0) Ur Specific [place] (1.001-1.035) Urine Protein (Negative) Urine Glucose (UA) (Negative) Urine Ketones (Negative) Urine Blood (Negative) Urine Nitrite (Negative) Urine Bilirubin (Negative) Urine Urobilinogen (<2.0) mg/dL Ur Leukocyte Esterase (Negative) Urine RBC (0-5) /hpf Urine WBC (0-5) /hpf Ur Squamous Epith Cells (0-4) /hpf Urine Mucus (None) /hpf Blood Type O Positive Blood Type Recheck O Pos Bld Type Recheck Status No Disposition Clinical Impression: Vaginal bleeding Disposition: HOME SELF-CARE Condition: Stable Additional Instructions: Please HCG drawn in 48 hours Please follow-up with primary ROTATING EQUIPMENT SPECIALIST tomorrow or Friday Please return to the nearest emergency department if bleeding increases Is patient prescribed a controlled substance at d/c from ED?: No Referrals: Fely Cullen PAC [Family Provider] - 1-2 days Dali Harley DO [Doctor of Osteopathic Medicine] - 1-2 days Time of Disposition: 21:12
[2023-05-15 20:14] LABS: Basophils % (A) 0 %; Eosinophils # (A) 0.1 k/uL (0-0.7); Eosinophils % (A) 1 %; HCT 39.8 % (34.0-46.0); HGB 13.3 gm/dL (11.4-16.0); Lymphocytes # (A) 2.3 k/uL (1.0-4.8); Lymphocytes % (A) 21 %; MCH 29.3 pg (25.0-35.0); MCHC 33.4 g/dL (31.0-37.0); MCV 87.9 fL (80.0-100.0); Mean Platelet Volume 7.7; Monocytes # (A) 0.4 k/uL (0-1.0); Monocytes % (A) 4 %; Neutrophils % (A) 73 %; Platelet Count 242 k/uL (150-450); RBC 4.52 m/uL (3.80-5.40); RDW 13.9 % (11.5-15.5)
[2023-05-15 20:21] LABS: Appearance,Urine Clear (Clear); Bilirubin,Urine Negative (Negative); Blood,Urine Large (Negative); Color,Urine Light Red; Glucose,Urine (UA) Negative (Negative); Ketones,Urine 2+ (Negative); Leukocyte Esterase,Urine Small (Negative); Mucus,Urine Occasional /hpf; Nitrite,Urine Negative (Negative); Protein,Urine Trace (Negative); RBC,Urine >182 /hpf (0-5); Specific Gravity,Urine 1.026 (1.001-1.035); Squamous Epithelial Cell,Urine 2 /hpf (0-4); Urobilinogen,Urine <2.0 mg/dL (<2.0); WBC,Urine 50 /hpf (0-5)
[2023-05-15 20:29] LABS: ALT 149 U/L (4-34); AST 86 U/L (14-36); African American GFR (CKD) >90 (>60 ml/min/1.73 sqM); Albumin 4.2 g/dL (3.5-5.0); Alkaline Phosphatase 78 U/L (38-126); Anion Gap 9 mmol/L; Blood Urea Nitrogen 16 mg/dL (7-17); Carbon Dioxide 23 mmol/L (22-30); Chloride 104 mmol/L (98-107); Glucose 93 mg/dL (74-99); Non-African American GFR(CKD) >90 (>60 ml/min/1.73 sqM); Potassium 3.9 mmol/L (3.5-5.1); Sodium 136 mmol/L (137-145); Total Bilirubin 0.5 mg/dL (0.2-1.3)
[2023-05-15 20:43] LABS: HCG,Quantitative Serum 6405.5 mIU/mL
--- NOTE | 2023-05-15 20:49 | US ---
EXAMINATION TYPE: Ultrasound OB <= 14 weeks transvaginal DATE OF EXAM: 05/15/2023 8:36 PM COMPARISON: NONE CLINICAL INDICATION: Female, 33 years old with history of vaginal bleeding inpregnancy; heavy bleedin g x 3 hours. EXAM PERFORMED: Transvaginal (TV) and Transabdominal (TA). Transvaginal exam limited due to body hab itus EXAM MEASUREMENTS: GESTATIONAL AGE / DATING Physician Established: Not yet established Dates by LMP: 04/03/23 (6 weeks/0 days) EDC: 01/08/24 Dates by First Scan: No previous this is first scan Dates by Current Scan for: Unable to date by today's study MATERNAL ANATOMY Uterus: 9.4 x 6.0 x 5.0cm Right Ovary: 4.6 x 2.7 x 2.9cm Left Ovary: Not seen Post CDS / Adnexa: wnl Presence of free fluid: No Presence of corpus luteal cyst: Possible in rt ovary measuring 1.7 x 1.3 x 1.3cm Presence of subchorionic bleed: No GESTATION / SURVEY CRL: Not seen MSD: 1.22cm (5 weeks/2 days) Yolk Sac (normal less than 6mm): Not seen IUP: Only a gestational sac is visualized. Date of LMP: 04/03/23 Beta HcG (if available): pending IMPRESSION: Fluid locule within the fundal endometrium could represent a gestational sac of an early intrauterine . However, at a mean sac diameter of 1.2 cm, a yolk sac should generally be visible. No yol k sac or pole is identified. Recommend serial beta hCG and ultrasound follow-up to ensure the a ppearance of a normal pole with cardiac activity. Current differential considerations include p seudogestational sac of a nonvisualized ectopic , failed , and normal early pregnan cy.
[2023-05-15 21:24] VITALS: BP 106/66; PULSE 67; RESP 16; TEMP 98.4
== END 2023-05-15 21:24 | disposition home or self-care (01) ==
LOC: EC 18:59
DX: O46.91 Antepartum hemorrhage, unspecified, first trimester (principal); Z3A.01 Less than 8 weeks gestation of pregnancy
CPT/HCPCS: 36415; 76801; 76817; 80053; 81001; 84702; 85025; 86900; 86901; 96360; 96361; 99284

== ENCOUNTER → 2023-05-17 | Outpatient (CLI) | payer BC | END | disposition home or self-care (01) | LOC: LABWHC1 10:59 | PROVIDERS: ATTEND Student in an Organized Health Care Education/Training Program | DX: O20.0 Threatened abortion (principal); Z3A.00 Weeks of gestation of pregnancy not specified | CPT/HCPCS: 36415; 84702 ==

== ENCOUNTER 2023-12-19 19:15 | Emergency (ER) | payer BC, OTHER ==
--- NOTE | 2023-12-19 19:40 | ED ---
General Adult HPI - General Chief complaint: Abdominal Pain Stated complaint: sinus infection-37 weeks Time Seen by Provider: 12/19/23 19:23 Source: patient Mode of arrival: ambulatory Limitations: no limitations - History of Present Illness Initial comments: 33-year-old G2, currently 37-week female presenting to the ED with complaints of nausea. Patient reports over the past week has had some facial pressure, congestion, and fatigue. Reports that she was seen at urgent care 2 days ago and was prescribed Augmentin. Patient reports she has been taking this as prescribed. States that since she started to take Augmentin and started to experience some nausea, no vomiting. Also reports she is starting to have some generalized abdominal pain and nonbloody diarrhea. No fever or chills. No vaginal bleeding. No chest pain or shortness of breath. No changes in urinary habits. Patient follows with Dr. Harley. No other complaints at this time. - Related Data Home Medications Medication Instructions Recorded Confirmed Oag-Bxpu-Bycyt Acid 1 cap PO DAILY 01/13/19 08/30/19 [-U Capsule (formulary)] Allergies Allergy/AdvReac Type Severity Reaction Status Date / Time No Known Allergies Allergy Verified 05/15/23 19:35 Review of Systems ROS Statement: Those systems with pertinent positive or pertinent negative responses have been documented in the HPI. ROS Other: All systems not noted in ROS Statement are negative. Past Medical History Past Medical History: GERD/Reflux History of Any Multi-Drug Resistant Organisms: None Reported Past Surgical History: Section, Tonsillectomy Past Anesthesia/Blood Transfusion Reactions: No Reported Reaction, Family History of Problems w/ Anesthesia Additional Past Anesthesia/Blood Transfusion Reaction / Comment(s): "mom during c/s- b/p dropped flatlined and had to be revived" Past Psychological History: No Psychological Hx Reported Smoking Status: Never smoker Past Alcohol Use History: None Reported Past Drug Use History: None Reported - Past Family History Mother Additional Family Medical History / Comment(s): maternal grandpa bleeding disorder and DVT's General Exam Limitations: no limitations General appearance: alert, in no apparent distress Eye exam: Present: normal appearance Neck exam: Present: normal inspection Respiratory exam: Present: normal lung sounds bilaterally Cardiovascular Exam: Present: regular rate, normal rhythm GI/Abdominal exam: Present: soft Neurological exam: Present: alert, oriented X3 Skin exam: Present: warm, dry Course Vital Signs 12/19/23 12/19/23 19:17 21:00 Temperature 99.1 F Pulse Rate 75 82 Respiratory 16 18 Rate Blood Pressure 134/87 131/84 O2 Sat by Pulse 100 98 Oximetry Medical Decision Making - Medical Decision Making Was pt. sent in by a medical professional or institution (, PA, EXTRUSION DIE CORRECTOR, urgent care, hospital, or shelter...) When possible be specific @ -No Did you speak to anyone other than the patient for history (EMS, parent, family, police, friend...)? What history was obtained from this source @ -No Did you review nursing and triage notes (agree or disagree)? Why? @ -I reviewed and agree with nursing and triage notes Were old charts reviewed (outside hosp., previous admission, EMS record, old EKG, old radiological studies, urgent care reports/EKG's, shelter records)? Report findings @ -No old charts were reviewed Differential Diagnosis (chest pain, altered mental status, abdominal pain women, abdominal pain men, vaginal bleeding, weakness, fever, dyspnea, syncope, headache, dizziness, GI bleed, back pain, seizure, CVA, palpatations, mental health, musculoskeletal)? @ -Differential Abdominal Pain Women: Appendicitis, Cholecystitis, diverticulosis, ischemic bowel, pancreatitis, hepatitis, UTI, gastroenteritis, AAA, incarcerated hernia, bowel obstruction, constipation, inflammatory bowel, hepatitis, peptic ulcer disease, splenic infarction, perforated viscus, vulvitis, ovarian torsion, PID, kidney stone, placenta abruption, this is not meant to be an all-inclusive list EKG interpreted by me (3pts min.). @ -As above X-rays interpreted by me (1pt min.). @ -None done CT interpreted by me (1pt min.). @ -None done U/S interpreted by me (1pt. min.). @ - ultrasound interpreted me showing no evidence of acute finding. Show single live IUP at 38 weeks and 2 days. Vertex position. What testing was considered but not performed or refused? (CT, X-rays, U/S, labs)? Why? @ -None What meds were considered but not given or refused? Why? @ -After discussion of antiemetic use in and their safety, patient declined any antiemetics. Did you discuss the management of the patient with other professionals (professionals i.e. , PA, EXTRUSION DIE CORRECTOR, lab, RT, psych nurse, social security assessor, green marketing analyst, teacher, workplace rehabilitation officer, bottle caser)? Give summary @ -No Was smoking cessation discussed for >3mins.? @ -No Was critical care preformed (if so, how long)? @ -No Were there social determinants of health that impacted care today? How? (Homelessness, low income, unemployed, alcoholism, drug addiction, transportation, low edu. Level, literacy, decrease access to med. care, long-term, rehab)? @ -No Was there de-escalation of care discussed even if they declined (Discuss DNR or withdrawal of care, Hospice)? DNR status @ -No What co-morbidities impacted this encounter? (DM, HTN, Smoking, COPD, CAD, Cancer, CVA, ARF, Chemo, Hep., AIDS, mental health diagnosis, sleep apnea, morb id obesity)? @ - Was patient admitted / discharged? Hospital course, mention meds given and route, prescriptions, significant lab abnormalities, going to OR and other pertinent info. @ -Discharge 33-year-old female presenting to the ED with complaints of nausea, diarrhea, generalized abdominal pain, and fatigue after recently starting Augmentin for sinus infection. Laboratory studies reviewed. CBC CMP largely unremarkable. Urine did show 4+ ketones. Was provided D5 here in the ED. Declined antiemetics. Patient did tolerate oral intake while here in the ED. ultrasound shows a single live IUP at 38 weeks and 2 days. Discharged home in stable condition. Discussed return precautions with patient who verbalized agreement. Undiagnosed new problem with uncertain prognosis? @ -No Drug Therapy requiring intensive monitoring for toxicity (Heparin, Nitro, Insulin, Cardizem)? @ -No Were any procedures done? @ -No Diagnosis/symptom? @ -Nausea, diarrhea, generalized abdominal pain Acute, or Chronic, or Acute on Chronic? @ -Acute Uncomplicated (without systemic symptoms) or Complicated (systemic symptoms)? @ -Uncomplicated Side effects of treatment? @ -No Exacerbation, Progression, or Severe Exacerbation? @ -No Poses a threat to life or bodily function? How? (Chest pain, [place], [place], pneumonia, PE, COPD, DKA, ARF, appy, cholecystitis, CVA, Diverticulitis, Homicidal, Suicidal, threat to staff... and all critical care pts) @ -No - Lab Data Result diagrams: 12/19/23 20:03 12/19/23 20:03 Lab Results 12/19/23 12/19/23 12/19/23 Range/Units 20:03 20:03 20:04 WBC 11.0 H (3.8-10.6) k/uL RBC 4.73 (3.80-5.40) m/uL Hgb 13.4 (11.4-16.0) gm/dL Hct 39.2 (34.0-46.0) % MCV 82.9 (80.0-100.0) fL MCH 28.3 (25.0-35.0) pg MCHC 34.2 (31.0-37.0) g/dL RDW 14.2 (11.5-15.5) % Plt Count 282 (150-450) k/uL MPV 7.8 Neutrophils % 86 % Lymphocytes % 8 % Monocytes % 5 % Eosinophils % 0 % Basophils % 0 % Neutrophils # 9.4 H (1.3-7.7) k/uL Lymphocytes # 0.9 L (1.0-4.8) k/uL Monocytes # 0.5 (0-1.0) k/uL Eosinophils # 0.0 (0-0.7) k/uL Basophils # 0.0 (0-0.2) k/uL Sodium 132 L (137-145) mmol/L Potassium 4.4 (3.5-5.1) mmol/L Chloride 106 (98-107) mmol/L Carbon Dioxide 12 L (22-30) mmol/L Anion Gap 14 mmol/L BUN 7 (7-17) mg/dL Creatinine 0.58 (0.52-1.04) mg/dL Est GFR (CKD-EPI)AfAm >90 (>60 ml/min/1.73 sqM) Est GFR (CKD-EPI)NonAf >90 (>60 ml/min/1.73 sqM) Glucose 85 (74-99) mg/dL Calcium 9.0 (8.4-10.2) mg/dL Total Bilirubin 1.2 (0.2-1.3) mg/dL AST 30 (14-36) U/L ALT 28 (4-34) U/L Alkaline Phosphatase 209 H (38-126) U/L Total Protein 6.5 (6.3-8.2) g/dL Albumin 3.7 (3.5-5.0) g/dL Amylase 71 (30-110) U/L Lipase 30 (23-300) U/L HCG, Quant 26076.2 mIU/mL Urine Color Urine Appearance (Clear) Urine pH (5.0-8.0) Ur Specific [place] (1.001-1.035) Urine Protein (Negative) Urine Glucose (UA) (Negative) Urine Ketones (Negative) Urine Blood (Negative) Urine Nitrite (Negative) Urine Bilirubin (Negative) Urine Urobilinogen (<2.0) mg/dL Ur Leukocyte Esterase (Negative) Urine RBC (0-5) /hpf Urine WBC (0-5) /hpf Ur Squamous Epith Cells (0-4) /hpf Urine Bacteria (None) /hpf Hyaline Casts (0-2) /lpf Urine Mucus (None) /hpf Influenza Type A (PCR) Not Detected (Not Detectd) Influenza Type B (PCR) Not Detected (Not Detectd) RSV (PCR) Not Detected (Not Detectd) SARS-CoV-2 (PCR) Not Detected (Not Detectd) 12/19/23 Range/Units 22:37 WBC (3.8-10.6) k/uL RBC (3.80-5.40) m/uL Hgb (11.4-16.0) gm/dL Hct (34.0-46.0) % MCV (80.0-100.0) fL MCH (25.0-35.0) pg MCHC (31.0-37.0) g/dL RDW (11.5-15.5) % Plt Count (150-450) k/uL MPV Neutrophils % % Lymphocytes % % Monocytes % % Eosinophils % % Basophils % % Neutrophils # (1.3-7.7) k/uL Lymphocytes # (1.0-4.8) k/uL Monocytes # (0-1.0) k/uL Eosinophils # (0-0.7) k/uL Basophils # (0-0.2) k/uL Sodium (137-145) mmol/L Potassium (3.5-5.1) mmol/L Chloride (98-107) mmol/L Carbon Dioxide (22-30) mmol/L Anion Gap mmol/L BUN (7-17) mg/dL Creatinine (0.52-1.04) mg/dL Est GFR (CKD-EPI)AfAm (>60 ml/min/1.73 sqM) Est GFR (CKD-EPI)NonAf (>60 ml/min/1.73 sqM) Glucose (74-99) mg/dL Calcium (8.4-10.2) mg/dL Total Bilirubin (0.2-1.3) mg/dL AST (14-36) U/L ALT (4-34) U/L Alkaline Phosphatase (38-126) U/L Total Protein (6.3-8.2) g/dL Albumin (3.5-5.0) g/dL Amylase (30-110) U/L Lipase (23-300) U/L HCG, Quant mIU/mL Urine Color Yellow Urine Appearance Cloudy H (Clear) Urine pH 6.0 (5.0-8.0) Ur Specific [place] 1.034 (1.001-1.035) Urine Protein 2+ H (Negative) Urine Glucose (UA) Negative (Negative) Urine Ketones 4+ H (Negative) Urine Blood Negative (Negative) Urine Nitrite Negative (Negative) Urine Bilirubin 1+ H (Negative) Urine Urobilinogen 2.0 (<2.0) mg/dL Ur Leukocyte Esterase Negative (Negative) Urine RBC 1 (0-5) /hpf Urine WBC 3 (0-5) /hpf Ur Squamous Epith Cells 14 H (0-4) /hpf Urine Bacteria Occasional H (None) /hpf Hyaline Casts 6 H (0-2) /lpf Urine Mucus Many H (None) /hpf Influenza Type A (PCR) (Not Detectd) Influenza Type B (PCR) (Not Detectd) RSV (PCR) (Not Detectd) SARS-CoV-2 (PCR) (Not Detectd) Disposition Clinical Impression: Nausea, Diarrhea Disposition: HOME SELF-CARE Condition: Good Additional Instructions: Please return to the Emergency Department if symptoms worsen or any other concerns. Please follow-up with your PCP and your [facility]. Is patient prescribed a controlled substance at d/c from ED?: No Referrals: None,Stated [Primary Care Provider] - 1-2 days Time of Disposition: 23:16
[2023-12-19 19:41] VITALS: TEMP 99.1
[2023-12-19] MEDS: DEXTROSE 5%-0.9% NACL 1,000 ML IV SCH (20:12)
[2023-12-19 20:28] LABS: Basophils % (A) 0 %; Eosinophils % (A) 0 %; HCT 39.2 % (34.0-46.0); HGB 13.4 gm/dL (11.4-16.0); Lymphocytes # (A) 0.9 k/uL (1.0-4.8); Lymphocytes % (A) 8 %; MCH 28.3 pg (25.0-35.0); MCHC 34.2 g/dL (31.0-37.0); MCV 82.9 fL (80.0-100.0); Mean Platelet Volume 7.8; Monocytes # (A) 0.5 k/uL (0-1.0); Monocytes % (A) 5 %; Neutrophils # (A) 9.4 k/uL (1.3-7.7); Neutrophils % (A) 86 %; Platelet Count 282 k/uL (150-450); RBC 4.73 m/uL (3.80-5.40); RDW 14.2 % (11.5-15.5)
[2023-12-19 20:33] LABS: ALT 28 U/L (4-34); AST 30 U/L (14-36); African American GFR (CKD) >90 (>60 ml/min/1.73 sqM); Albumin 3.7 g/dL (3.5-5.0); Alkaline Phosphatase 209 U/L (38-126); Amylase 71 U/L (30-110); Anion Gap 14 mmol/L; Blood Urea Nitrogen 7 mg/dL (7-17); Carbon Dioxide 12 mmol/L (22-30); Chloride 106 mmol/L (98-107); Glucose 85 mg/dL (74-99); Lipase 30 U/L (23-300); Non-African American GFR(CKD) >90 (>60 ml/min/1.73 sqM); Potassium 4.4 mmol/L (3.5-5.1); Sodium 132 mmol/L (137-145); Total Bilirubin 1.2 mg/dL (0.2-1.3); Total Protein 6.5 g/dL (6.3-8.2)
--- NOTE | 2023-12-19 21:10 | US ---
EXAMINATION TYPE: US OB >= 14 wk fetus DATE OF EXAM: 12/19/2023 COMPARISON: None CLINICAL INDICATION: Female, 33 years old with history of abdominal pain 37 weeks ; abd pain, sinus infection TECHNIQUE: Transabdominal (TA) ultrasound of the pelvis GESTATIONAL AGE / DATING Physician Established: (37 weeks/1 days) EDC: 01/08/24 Dates by LMP: (37 weeks/1 days) EDC: 01/08/24 Dates by First Scan: (36 weeks/4 days) EDC: 01/13/24 Dates by Current Scan: (38 weeks/2 days) EDC: 12/31/23 Beta HCG (if available): Not available at this time SURVEY IUP: Single PLACENTA: Posterior PREVIA: No Previa KISHA: 11.1 cm, Normal CERVICAL LENGTH (transabdominal: norm > 3.0cm): obscured by shadowing from head BIOMETRY PRESENTATION: Vertex LIE: Longitudinal BPD: 9.54 cm 39 weeks / 0 days HC: 35.3 cm 41 weeks / 2 days AC: 35.3 cm 39 weeks / 2 days FL: 7.1 cm 36 weeks / 2 days ESTIMATED WEIGHT IN GRAMS: 3605 grams ESTIMATED WEIGHT IN LBS/OZ: 7 lbs. 15 oz. WEIGHT PERCENTAGE BASED ON ESTABLISHED DATES: 92% HC/AC: 1.0 Normal FL/AC: 20.15 Normal HEART RATE: 159 bpm RHYTHM: Normal Exam is limited by advanced age IMPRESSION: 1. Single, live intrauterine measuring 38 weeks 2 days, in vertex presentation. 2. Cervical length unable to be obtained, obscured by shadowing from the head. No funneling is suggested. 3. Normal KISHA.
[2023-12-19 21:29] LABS: HCG,Quantitative Serum 25034.2 mIU/mL
[2023-12-19] MEDS: ACETAMINOPHEN TAB 500 MG TAB PO STA (22:34)
[2023-12-19 22:48] LABS: Appearance,Urine Cloudy (Clear); Bacteria,Urine Occasional /hpf; Bilirubin,Urine 1+ (Negative); Blood,Urine Negative (Negative); Color,Urine Yellow; Glucose,Urine (UA) Negative (Negative); Hyaline Casts,Urine 6 /lpf (0-2); Ketones,Urine 4+ (Negative); Leukocyte Esterase,Urine Negative (Negative); Mucus,Urine Many /hpf; Nitrite,Urine Negative (Negative); Protein,Urine 2+ (Negative); RBC,Urine 1 /hpf (0-5); Specific Gravity,Urine 1.034 (1.001-1.035); Squamous Epithelial Cell,Urine 14 /hpf (0-4); WBC,Urine 3 /hpf (0-5)
[2023-12-19 23:49] VITALS: BP 132/78; PULSE 77; RESP 16
== END 2023-12-19 23:47 | disposition home or self-care (01) ==
LOC: EC 19:15
DX: O26.893 Other specified pregnancy related conditions, third trimester (principal); R10.84 Generalized abdominal pain; R19.7 Diarrhea, unspecified; R11.0 Nausea; Z3A.38 38 weeks gestation of pregnancy
CPT/HCPCS: 36415; 76805; 80053; 81001; 82150; 83690; 84702; 85025; 87636; 96360; 96361; 99284

== ENCOUNTER 2024-01-01 10:00 | Inpatient (IN) | payer BC, OTHER ==
[2024-01-01] MEDS ORDERED: miSOPROStoL 200 MCG TAB PO PRN (10:21)
[2024-01-01] MEDS ORDERED: CARBOPROST TROMETHAMINE 250 MCG/ML 1 ML AMP IM PRN (10:21)
[2024-01-01] MEDS ORDERED: TRANEXAMIC 1,000 MG/100ML-NACL 1,000 MG in EMPTY BAG 1 BAG IV PRN (10:21)
[2024-01-01] MEDS ORDERED: METHYLERGONOVINE 0.2 MG/ML 1 ML AMP IM PRN (10:21)
[2024-01-01] MEDS ORDERED: OXYTOCIN 10 UNIT/ML 1 ML VIAL IM PRN (10:21)
[2024-01-01] MEDS: LACTATED RINGERS 1,000 ML IV ONE (10:30)
[2024-01-01] MEDS ORDERED: OXYTOCIN 30 UNITS/500 ML NS 30 UNIT in SALINE 1 500ML.BAG IV SCH (10:30)
[2024-01-01 10:46] LABS: Basophils % (A) 0 %; Eosinophils # (A) 0.1 k/uL (0-0.7); Eosinophils % (A) 1 %; HGB 12.2 gm/dL (11.4-16.0); Lymphocytes # (A) 1.7 k/uL (1.0-4.8); Lymphocytes % (A) 16 %; MCH 27.6 pg (25.0-35.0); MCHC 32.9 g/dL (31.0-37.0); MCV 83.8 fL (80.0-100.0); Monocytes # (A) 0.6 k/uL (0-1.0); Monocytes % (A) 6 %; Neutrophils # (A) 8.1 k/uL (1.3-7.7); Neutrophils % (A) 76 %; Platelet Count 316 k/uL (150-450); RBC 4.42 m/uL (3.80-5.40); RDW 14.7 % (11.5-15.5); WBC 10.6 k/uL (3.8-10.6)
[2024-01-01] MEDS: CITRIC ACID-SODIUM CITRATE 15 ML CUP PO ONE (11:33)
[2024-01-01] MEDS: ceFAZolin 3 GM in SODIUM CHLORIDE 0.9% 100 ML IVPB ONE (11:34)
--- NOTE | 2024-01-01 12:11 | P.HPOB ---
History of Present Illness H&P Date: 01/01/24 Chief Complaint: IU at 39 weeks,, history of x 1 desires repeat This is a 33-year-old at 39 weeks of that presents for repeat section. Patient has a prior history of section and desires repeat. Patient is receiving routine care which has been essentially uncomplicated. Patient is known blood type of O+, rubella status immune, B surface antigen negative, HIV negative, RPR is nonreactive, group beta strep cultures neg ative.This is a 33-year-old G2, P1 at 39 weeks of that presents for repeat section.. Patient has a prior history of a section and desires repeat. Patient has been receiving routine care which has been essentially uncomplicated. Patient has known blood type of O+, rubella status immune, hepatitis B surface engine negative, HIV negative, RPR is nonreactive, group B strep culture is negative. Review of Systems Constitutional: Denies chills, Denies fatigue, Denies fever Ears, nose, mouth and throat: Denies headache Cardiovascular: Reports leg edema Respiratory: Denies dyspnea Gastrointestinal: Denies constipation, Denies diarrhea, Denies nausea, Denies vomiting Genitourinary: Reports Past Medical History Past Medical History: GERD/Reflux Additional Past Medical History / Comment(s): failed 1 hour glucose but passed 3 hour test History of Any Multi-Drug Resistant Organisms: None Reported Past Surgical History: Section, Tonsillectomy Past Anesthesia/Blood Transfusion Reactions: No Reported Reaction, Family History of Problems w/ Anesthesia Additional Past Anesthesia/Blood Transfusion Reaction / Comment(s): "mom during c/s- b/p dropped flatlined and had to be revived" Past Psychological History: No Psychological Hx Reported Smoking Status: Never smoker Past Alcohol Use History: None Reported Past Drug Use History: None Reported - Past Family History Mother Additional Family Medical History / Comment(s): maternal grandpa bleeding disorder and DVT's Medications and Allergies Home Medications Medication Instructions Recorded Confirmed Type Yrn-Hojd-Tsdtp Acid 1 cap PO DAILY 01/13/19 01/01/24 History [-U Capsule (formulary)] Allergies Allergy/AdvReac Type Severity Reaction Status Date / Time No Known Allergies Allergy Verified 01/01/24 10:19 Exam Osteopathic Statement: *. No significant issues noted on an osteopathic structural exam other than those noted in the History and Physical/Consult. Vital Signs Temp Pulse Resp BP Pulse Ox 01/01/24 11:15 96.6 F L 90 16 121/71 98 Intake and Output 12/31/23 01/01/24 01/01/24 22:59 06:59 14:59 Other: Weight 139.706 kg Targeted physical exam is performed in this date and dust collector ore crushing a well-nourished well-developed female in no acute distress, breathing is noted to nonlabored, heart has a regular rhythm, abdomen is gravid, cervical exam is d eferred, heart tones returned be category 1.Targeted physical exam is performed this date General is well-nourished well-developed female in no acute distress, breathing is noted to be nonlabored, heart has a regular and rhythm, abdomen is gravid, cervical exam is deferred, heart tones noted to be category 1. Results Result Diagrams: 01/01/24 10:30 Abnormal Lab Results - Last 24 Hours (Table) 01/01/24 Range/Units 10:30 Neutrophils # 8.1 H (1.3-7.7) k/uL Assessment and Plan (1) History of section Current Visit: Yes Status: Acute Code(s): Z98.891 - HISTORY OF UTERINE SCAR FROM PREVIOUS SURGERY SNOMED Code(s): 353294908 (2) Term Current Visit: No Status: Acute Code(s): Z34.90 - ENCNTR FOR SUPRVSN OF NORMAL , UNSP, UNSP TRIMESTER SNOMED Code(s): 70305953 Plan: 33-year-old at 39 weeks presents for repeat section. Surgery is reviewed and questions are answered. Risks were reviewed including but not limited to infection, bleeding, damage to bladder, bowel, injury. Patient states understanding injury. Patient states understanding anesthesia in to see patient will proceed with repeat section.
[2024-01-01] MEDS ORDERED: ePHEDrine 50 MG/ML 1 ML VIAL ONE (12:17)
[2024-01-01] MEDS ORDERED: MORPHINE SULFATE (PF) 0.3 MG/0.3 ML SYR ONE (12:17)
[2024-01-01] MEDS ORDERED: ONDANSETRON 4 MG/2 ML VIAL ONE (12:17)
[2024-01-01] MEDS ORDERED: GLYCOPYRROLATE 0.2 MG/ML 2 ML VIAL ONE (12:17)
[2024-01-01] MEDS ORDERED: OXYTOCIN 30 UNITS/500 ML NS BAG IV ONE (12:17)
--- NOTE | 2024-01-01 12:30 | P.ANPRN ---
Procedure Note - Anesthesia - Epidural/Spinal Spinal Date of Procedure: 01/01/24 Procedure Start Time: 12:15 Procedure Stop Time: 12:23 Location of Patient: OR Indication: Acute Post-Operative Pain, Requested by Surgeon Sedation Type: Awake Preparation: Sterile Prep Position: Sitting Injectate: Bupivacaine .75% 1.2 cc plus Duramrph .3 mg Blood Aspirated: No Pain Paresthesia on Injection Noted: No Events: Uneventful and Well Tolerated
[2024-01-01] MEDS ORDERED: SIMETHICONE 80 MG CHEWABLE PO PRN (13:11)
[2024-01-01] MEDS ORDERED: diphenhydrAMINE 50 MG/ML 1 ML VIAL IVP PRN ×2 (13:11)
[2024-01-01] MEDS ORDERED: diphenhydrAMINE 50 MG CAP PO PRN (13:11)
[2024-01-01] MEDS ORDERED: ZOLPIDEM 5 MG TAB PO PRN (13:11)
[2024-01-01] MEDS ORDERED: diphenhydrAMINE 25 MG CAP PO PRN (13:11)
[2024-01-01] MEDS ORDERED: NALOXONE 0.4 MG/ML 1 ML VIAL IV PRN (13:11)
--- NOTE | 2024-01-01 13:17 | P.OP ---
Date of Procedure: 01/01/24 Preoperative Diagnosis: IUP at 39 weeks, history of x 1, desires repeat Postoperative Diagnosis: Same Procedure(s) Performed: Repeat section Anesthesia: spinal Surgeon: Dali Harley Information Technology Intern #1: Raj Theodore Estimated Blood Loss (ml): 700 IV fluids (ml): 1,500 Urine output (ml): 100 Pathology: none sent Condition: stable Disposition: observation Indications for Procedure: History of x 1 desires repeat Operative Findings: Viable male infant delivered at 1242, weight of 8 pounds 7 ounces, Apgars of 8 and 8 at 1 and 5 minutes respectively. Arcuate uterus is appreciated normal ovaries bilaterally. Description of Procedure: The patient was prepped and draped in the usual fashion after spinal anesthesia was administered by anesthesia department. A Pfannenstiel incision was made and extended of the abdominal cavity without difficulty. The bladder peritoneum was elevated and incised and reflected distally. A 2 cm incision was made in the transverse plane of the lower uterine segment to enter the uterus at which time clear fluid was noted. The incision was extended in both directions using the bandage scissors. The head was encountered within the field and delivered up and through the incision where the nose and mouth were thoroughly suctioned. Remainder of the infant was delivered onto the surgical field where the cord was doubly clamped, cut, and the infant was passed for resuscitative measures with weight and Apgars as noted above. Cord blood was then taken. The placenta was delivered manually, intact, and was grossly normal with a grossly normal three- vessel cord. The uterus was exteriorized and the interior cavity of the uterus swept of any remaining placental and membranous fragments with a laparotomy sponge. The margins of the incision were grasped with Rogers clamps and the incision closed in 2 layers. First layer was a running locking layer of 0 Vicryl from margin to margin followed by a second layer of imbricating 0 Vicryl from margin to margin. Any small points of bleeding were then made hemostatic with the Bovie. Once hemostasis was achieved, the posterior cul-de-sac was suctioned with a guard and the uterine and ovarian findings are as noted above. The uterus was replaced within the abdominal cavity and the gutters swept of any remaining blood fluid or clot. The incision was again reexamined bleeding was appreciated on the midportion of the uterine incision therefore a [id number] suture was used to obtain hemostasis. Incision was inspected once again and hemostasis was noted to be excellent. Any small point of bleeding were made hemostatic with the Bovie. Once hemostasis was achieved the parietal peritoneum was loosely reapproximated. The layer of muscles were examined and made hemostatic with the Bovie. Attention was then turned to the fascia which was closed with 2 running stitches of 0 Vicryl proceeding from 1 lateral edge to the other. The subcutaneous tissues were irrigated, made hemostatic with the Bovie, and reapproximated with a running stitch of 30 Vicryl. The skin was reapproximated with 4-0 Vicryl. Estimated blood loss for the case was approximately 700 mL. All sponge instrument and needle counts are correct. There were no complications. The patient tolerated the procedure well and proceeded to the recovery room in stable condition. Both mother and infant are resting comfortably in recovery.
[2024-01-01] MEDS: ACETAMINOPHEN IV (For NPO) 1,000 MG in EMPTY BAG 1 BAG IVPB SCH (15:34)
[2024-01-01] MEDS: METOCLOPRAMIDE 5 MG/ML 2 ML VIAL IVP PRN (16:49)
[2024-01-01] MEDS: LACTATED RINGERS 1,000 ML IV SCH ×2 (18:44→23:41)
[2024-01-01] MEDS: IBUPROFEN IV 800 MG in SODIUM CHLORIDE 0.9% 250 ML IV SCH (19:41)
[2024-01-01] MEDS: SENNOSIDES-DOCUSATE SODIUM 1 EACH TAB PO SCH (19:44)
[2024-01-01] MEDS: IBUPROFEN 600 MG TAB PO SCH (19:54)
[2024-01-01] MEDS: ONDANSETRON 4 MG/2 ML VIAL IVP PRN (21:15)
[2024-01-01] MEDS: ACETAMINOPHEN TAB 500 MG TAB PO SCH (23:40)
[2024-01-02 07:04] LABS: Basophils % (A) 0 %; Eosinophils # (A) 0.1 k/uL (0-0.7); Eosinophils % (A) 0 %; HCT 32.5 % (34.0-46.0); Lymphocytes # (A) 1.4 k/uL (1.0-4.8); Lymphocytes % (A) 9 %; MCHC 33.8 g/dL (31.0-37.0); MCV 85.6 fL (80.0-100.0); Mean Platelet Volume 8.1; Monocytes # (A) 0.9 k/uL (0-1.0); Monocytes % (A) 6 %; Neutrophils % (A) 83 %; Platelet Count 263 k/uL (150-450); RBC 3.79 m/uL (3.80-5.40); RDW 14.8 % (11.5-15.5); WBC 14.4 k/uL (3.8-10.6)
--- NOTE | 2024-01-02 08:39 | P.PN ---
Progress Note - Text Progress Note Date: 01/02/24 (0700) Anesthesia Postop day 1 Subjective: Status Post section with Duramorph. Patient seen and examined. Doing well without complaint. VAS 3 out of 10. No nausea vomiting or pruritus. Denies fever. Gross lower extremity strength intact. Without apparent anesthetic complications. Objective: Vital signs reviewed Heart: Regular Rate Lungs: Good chest excursion Abdomen: Appears nondistended Assessment: Status post section with Duramorph postop day 1 Plan: 1. Continue current care with your medical management. Anticipated end to the duration of the Duramorph around surgery time today. You may see increased pain needs around this time. 2. This note was dictated using [employer] software. Please be advised there is a potential for misspellings or errors in blending supervisor.
--- NOTE | 2024-01-02 09:30 | P.PNOBGPC ---
Subjective - Subjective Principal diagnosis: Postop day 1, repeat section Interval history: Patient is doing well post operatively. She is ambulating without difficulty. She had her Henriquez catheter removed last night and was unable to urinate therefore straight cath was performed band master. Awaiting spontaneous void. States her pain is well-controlled. Patient reports: Reports appetite normal, Reports voiding normally, Reports pain well controlled, Reports ambulating normally : doing well, nursing well Objective - Vital Signs Latest vital signs: Vital Signs Temp Pulse Resp BP Pulse Ox 01/02/24 07:25 98.1 F 62 16 105/67 98 01/02/24 04:00 97.7 F 84 16 104/69 95 01/01/24 23:51 98.0 F 87 15 107/70 95 01/01/24 20:22 97.6 F 76 16 126/72 96 01/01/24 17:16 96.6 F L 79 16 133/72 01/01/24 15:58 77 16 132/70 98 01/01/24 15:02 72 16 126/65 98 01/01/24 14:45 77 16 139/66 98 01/01/24 14:30 97.0 F L 69 16 130/62 97 01/01/24 14:15 74 16 126/58 01/01/24 14:00 86 16 133/61 01/01/24 13:45 79 16 124/57 01/01/24 13:30 80 16 128/59 01/01/24 13:15 96.6 F L 86 16 139/99 98 01/01/24 11:15 96.6 F L 90 16 121/71 98 Intake and Output 01/01/24 01/02/24 01/02/24 22:59 06:59 14:59 Intake Total 480 480 Output Total 330 300 Balance 150 180 Intake: Oral 480 480 Output: Urine 300 300 Uretheral (Henriquez) 300 Estimated Blood Loss 30 - Exam Extremities: Present: normal, edema Abdomen: Present: normal appearance, soft Incision: Present: normal, dry, intact Uterus: Present: normal, firm - Labs Labs: Abnormal Lab Results - Last 24 Hours (Table) 01/01/24 01/02/24 Range/Units 10:30 06:03 WBC 14.4 H (3.8-10.6) k/uL RBC 3.79 L (3.80-5.40) m/uL Hgb 11.0 L (11.4-16.0) gm/dL Hct 32.5 L (34.0-46.0) % Neutrophils # 8.1 H 12.0 H (1.3-7.7) k/uL Assessment and Plan (1) History of section Current Visit: Yes Status: Acute Code(s): Z98.891 - HISTORY OF UTERINE SCAR FROM PREVIOUS SURGERY SNOMED Code(s): 959786714 (2) Term Current Visit: No Status: Acute Code(s): Z34.90 - ENCNTR FOR SUPRVSN OF NORMAL , UNSP, UNSP TRIMESTER SNOMED Code(s): 15694609 (3) S/P section Current Visit: No Status: Acute Code(s): Z98.891 - HISTORY OF UTERINE SCAR FROM PREVIOUS SURGERY SNOMED Code(s): 657978945 Plan: 33-year-old G2 now P2 status post repeat section. Patient is doing well postoperatively, awaiting spontaneous void. If unable to void will replace Henriquez catheter and attempt spontaneous void this evening. Continue routine postoperative care.
[2024-01-03 00:56] VITALS: TEMP 97.7
--- NOTE | 2024-01-03 07:33 | P.DS ---
Providers Date of admission: 01/01/24 10:00 Expected date of discharge: 01/03/24 Attending physician: Dali Harley Primary care physician: Stated None Hospital Course: Ms. Harrison is a 33 year old now POD#2 s/p scheduled repeat section at 39 weeks. Her was uncomplicated. The patient is doing well this morning and had no acute events overnight. She has no complaints this morning. She reports minimal lochia, passing flatus, voiding without difficulty, ambulating, and eating/drinking without nausea or vomiting. Infant doing well at bedside, s/p circumcision. She denies chest pain, shortness of breathing, f luz, or chills overnight. She denies pain or swelling in the legs. Postoperative restrictions are reviewed with the patient including pelvic rest for 6 weeks, no lifting heavier than 15 pounds for 6 weeks. The patient is encouraged to call the office if she experiences any heavy bleeding, foul- smelling discharge, breast complaints, or any if she has any other concerns. She will follow up in the office with Dr. Harley in 2 weeks for postoperative exam. The patient would like a prescription for Motrin and Tylenol as needed for pain, she declines Oxycodone for breakthrough pain. All questions are answered. Assessment: 33 year old now POD#2 s/p repeat Patient Condition at Discharge: Good Plan - Discharge Summary Discharge Rx Participant: No New Discharge Prescriptions: New Ibuprofen [Motrin] 600 mg PO Q6HR PRN #30 tab PRN Reason: Mild Pain (Scale 1 To 3) Acetaminophen Tab [Tylenol] 650 mg PO Q6H PRN #30 tab PRN Reason: Mild Pain (Scale 1 To 3) No Action Nxb-Qoyh-Btcup Acid [-U Capsule (formulary)] 1 cap PO DAILY Discharge Medication List Smq-Sxln-Zdoyu Acid [-U Capsule (formulary)] 1 cap PO DAILY 01/13/19 [History] Acetaminophen Tab [Tylenol] 650 mg PO Q6H PRN #30 tab 01/03/24 [Rx] Ibuprofen [Motrin] 600 mg PO Q6HR PRN #30 tab 01/03/24 [Rx] Follow up Appointment(s)/Referral(s): Dali Harley DO [Doctor of Osteopathic Medicine] - 2 Weeks Activity/Diet/Wound Care/Special Instructions: Instructions 1. Do not begin any exercise program for 3 weeks. 2. Do not resume sexual relations for 6 weeks or longer if uncomfortable. 3. You may take tub baths or showers at any time. 4. You may use tampons if desired after 6 weeks. 5. Keep any areas repaired with stitches clean and dry. 6. If you are not nursing, wear a good fitting, supportive bra during the day and limit fluid intake for at least 1 week to prevent breast engorgement. 7. Call the office, , within the next week to make appointment for your 6 week checkup if it has not already been made. 8. Report any of the following occurrences to the doctor promptly: a. Heavy, excessive bleeding b. Chills, fever c. Burning or frequency of urination d. Pain or redness and breasts if nursing e. Increasing pain or swelling of vulva (stitches). In addition to the above instructions, the following additional should be followed: 1. No heavy lifting or straining (exercising) until after 6 week checkup. 2. Keep abdominal incision clean and dry: You may wear a dressing if more comfortable. 3. Make office appointment for 2 weeks after delivery date. Discharge Disposition: HOME SELF-CARE
[2024-01-03 08:12] VITALS: BP 131/80; PULSE 77; RESP 20
== END 2024-01-03 13:15 | disposition home or self-care (01) | DRG 788 ==
LOC: 4FBP 10:00
PROVIDERS: ADMIT Obstetrics & Gynecology Obstetrics; ATTEND Obstetrics & Gynecology Obstetrics
PROC: 10D00Z1 Extraction of Products of Conception, Low, Open Approach (ICD-10-PCS; principal; 2024-01-01 12:00)
DX: O34.211 Maternal care for low transverse scar from previous cesarean delivery (principal); O34.03 Maternal care for unspecified congenital malformation of uterus, third trimester; Q51.810 Arcuate uterus; O99.62 Diseases of the digestive system complicating childbirth; K21.9 Gastro-esophageal reflux disease without esophagitis; Z28.310 Unvaccinated for COVID-19; Z3A.39 39 weeks gestation of pregnancy; Z37.0 Single live birth
CPT/HCPCS: 85025; 86850; 86900; 86901

== ENCOUNTER → 2025-01-28 | Outpatient (CLI) | payer BC ==
--- NOTE | 2025-01-28 18:47 | US ---
EXAMINATION TYPE: US st tissue head/neck DATE OF EXAM: 01/28/2025 COMPARISON: NONE CLINICAL INDICATION: Female, 34 years old with history of R59.0 LOCALIZED ENLARGED LYMPH NODES; sonog rapher notes: Multiple lumps posterior neck x 1 year - patient denies any other signs, symptoms, or r elevant history TECHNIQUE: Posterior and lateral right neck at AOC scanned FINDINGS: Multiple lymph nodes seen at patients AOC and lateral neck. Largest at AOC = 1.2 x 0.6 x 1.4 cm with 0.4 cm cortex Largest lateral neck, submandibular up to 1.7 cm wide with 0.6 cm thickened cortex. Incidental - a few hypoechoic TR 4 solid nodules within the right lobe measuring up to 8 mm. IMPRESSION: 1. Scattered prominent lymph nodes, largest posteriorly and in the submandibular regions. The largest is mildly enlarged measuring up to 1.2 cm, probably reactive/post inflammatory. 2. Recommend clinical follow-up to ensure stability/resolution. If any enlarging palpable area, the p atient should be rescanned and consideration can be given to tissue sampling. None of the lymph nodes are large enough to sample at this time. 3. A few TR4 nodules within the right thyroid lobe measuring up to 8 mm. Recommend follow-up thyroid ultrasound in 6 months to reassess these nodules and for a more global assessment of the thyroid brunilda caceres [facility], , 01/28/2025 6:45 PM
== END | disposition home or self-care (01) ==
LOC: RADUSWWP 10:55 → MERGE 11:00
PROVIDERS: ATTEND Internal Medicine
DX: E04.2 Nontoxic multinodular goiter (principal); R59.0 Localized enlarged lymph nodes
CPT/HCPCS: 76536